=== PATIENT | male | born 1940 ===

== ENCOUNTER 2025-04-20 07:30 | Outpatient (AMB) | payer MEDICARE, SELFPAY ==
--- OUTSIDE RECORDS SUMMARY | 2025-04-20 07:39 | XMS_ITS | Clinical Summary ---
Author Organization [facility] Address [address] [place] [address] Care Team Providers Care Bordereau Clerk Name Role Phone Yaya Rosenthal MD Primary Care Provider [phone] Allergies No known active allergies Medications Medication Sig Dispensed Refills Start Date End Date Status amLODIPine (NORVASC) tablet 10 mg Take 10 mg by mouth. 0 01/09/2019 Active amLODIPine (NORVASC) tablet 10 mg TAKE ONE TABLET BY MOUTH EVERY DAY 0 08/08/2021 Active atorvastatin (LIPITOR) tablet 20 mg Take 20 mg by mouth. 0 12/14/2019 Active hydroCHLOROthiazide (HYDRODIURIL) tablet 25 mg Take 25 mg by mouth daily. 0 12/14/2019 Active metoprolol succinate (TOPROL-XL) 24 hr tablet 100 mg Take 50 mg by mouth. 0 01/09/2019 Active olmesartan (BENICAR) tablet 40 mg Take 40 mg by mouth. 0 12/14/2019 Active Family History Medical History Relation Name Comments Hypertension Father Hypertension Mother Relation Name Status Comments Father Mother Social History Tobacco Use Types Packs/Day Years Used Date Smoking Tobacco: Never Assessed Sex and Gender Information Value Date Recorded Sex Assigned at Not on file Gender Identity Not on file Sexual Orientation Not on file Job Start Date Occupation Industry Not on file Not on file Not on file Last Filed Vital Signs Vital Sign Reading Time Taken Comments Blood Pressure - - Pulse - - Temperature - - Respiratory Rate - - Oxygen Saturation - - Inhaled Oxygen Concentration - - Weight 79.4 kg (175 lb) 08/23/2021 8:26 AM EST Height 175.3 cm (5' 9 ) 08/23/2021 8:26 AM EST Body Mass Index 25.84 08/23/2021 8:26 AM EST Plan of Treatment Health Maintenance Due Date Last Done Comments COVID-19 Vaccine (#1) 01/01/1941 Depression Screening 1953 Preventative Health Evaluation 1959 DTap / Tdap / Td (1 - Tdap) 1960 Shingrix-Zoster Vaccine (1 of 2) 1991 Fall Risk Assessment 2006 Pneumococcal Vaccine (1 of 1 - PCV) 2006 RSV Adult > 60+ Yrs or Pregn ant (1 - 1-dose 75+ series) 2016 Influenza Vaccine (#1) 2025 Hepatitis B Vaccines Aged Out No long er eligible based on patient's age to complete this topic RSV Ped < 20 months Aged Out No longe r eligible based on patient's age to complete this topic Care Teams [place] Clerk Relationship Specialty Start Date End Date Yaya Rosenthal MD [address] [facility] [address] [place] [id number] PCP - General Geriatric Medicine 08/01/21
--- OUTSIDE RECORDS SUMMARY | 2025-04-20 07:40 | XMS_ITS | Patient Health Record ---
Author Organization [facility] Jessica tonia Treviño Address [address] [facility] [place] [address] Care Team Providers Care Manager Business Systems Name Role Phone Yaya Rosenthal MD Primary Care Provider Unavail able Black, Kalyn Unavailable [phone] Allergies No Known Allergies Reason For Referral No Information Medications Medication SIG (Take, Route, Frequency, Duration) Notes Start Date End Date Status Ciclopirox Olamine 0.77 % 1 application Externally Twice a day; Duration: 30 days Active amLODIPine Besylate 10 MG 1 tablet Orall y Once a day; Duration: 30 day(s) Active Aspirin 81 MG 1 tablet Orally Once a day; Duration: 30 day(s) Active Atorvastatin Calcium 20 MG 1 tablet Oral ly Once a day; Duration: 30 day(s) Active hydroCHLOROthiazide 25 MG 1 tablet in e morning Orally Once a day; Duration: 30 day(s) Active Metoprolol Succinate 50 MG 1 capsule Ora lly Once a day; Duration: 30 day(s) Active Olmesartan Medoxomil 40 MG 1 tablet Oral ly Once a day; Duration: 30 day(s) Active Immunizations Vaccine Route Administration Date Status Comme nts COVID-19 Moderna Vaccine Unknown 09/12/2020 Administere d 08/15/2020 Social History Tobacco Use: Social History Observation Description Date Details (start date - stop date) Never Smoker NA - NA Tobacco Use/Smoking Question Answer Notes Are you a: nonsmoker Additional Findings: Tobacco Non-User Current no n-smoker Alcohol Screen Question Answer Notes Did you have a drink containing alcohol in the p ast year? No Points 0 Interpretation Negative Tobacco use other than smoking: Question Answer Notes Are you an other tobacco user? No Problems Problem Type SNOMED Code ICD Code Onset Dates Problem Status W/U Status Risk Notes Problem Acquired hammer toe of right foot (9410415961694 105) Hammer toe of right foot (M20.41) Active confirmed Problem Acquired hammer toe of left foot (6863444616926 103) Hammer toe of left foot (M20.42) Active confirmed Plan Of Treatment Pending Test Test Name Order Date [id number] NAIL, 6 OR MORE 08/19/2020 [id number] NAIL, 6 OR MORE 04/07/2021 [id number] NAIL, 6 OR MORE 08/10/2022 [id number] NAIL, 6 OR MORE 11/23/2022 [id number] NAIL, 6 OR MORE 12/01/2021 [id number] NAIL, 6 OR MORE 08/04/2021 [id number] NAIL, 6 OR MORE 12/14/2020 [id number] NAIL, 6 OR MORE 04/06/2022 Insurance Providers Payer Name Payer Address Payer Phone Subscriber Number Group Number Insured Name Patient Relationship to Insured Coverage Start Date Coverage End Date [employer] Medicare [id number] [address] [address] [place] [address] [id number] Self - patient is the insured Medical (General) History Medical History History ICD Code osteoarthritis Heart disease High blood pressure Surgical History Surgery Date(Month/Year) [facility] 09/13/2001
--- NOTE | 2025-04-20 07:48 | A.OFFVIS_ITS ---
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 Patient reports that his right knee has been painful for about 3 weeks now. He did not have a direct injury but explains that he was doing yard work on uneven ground and was getting on and off the mower when he developed pain in the knee. He feels that he may have twisted the knee. His Pain is consistent and worsened with activities, he also explains some weakness that is particularly felt while descending stairs. No previous therapies tried. He is not taking anything for his pain at this time. Allergies No Known Allergies Allergy (Verified 04/20/25 07:57) Medication List - Last Reviewed 04/20/25 by Olga Akhtar, EMMANUEL amlodipine 10 mg PO DAILY atorvastatin 40 mg PO BEDTIME clopidogrel 75 mg PO DAILY hydrochlorothiazide 25 mg PO DAILY mecobalamin (vitamin B12) 1,000 mcg PO .Three Times a Week metoprolol succinate ER 50 mg PO DAILY olmesartan 40 mg PO DAILY Physical Exam Const Other: Well-nourished well-developed very friendly male awake alert and oriented x3 in no acute distress Extrem Other: Right knee examination shows a large effusion, palpable crepitus with range of motion, pain with range of motion Office Procedures AMB Joint Injection/Aspiration Joint Injection/Aspiration Primary Site: right knee Prep: site was prepped using aseptic technique Injected: 40 mg of, DepoMedrol and 1% plain lidocaine Procedure: The patient tolerated the procedure well Coding 68568 - Large joint Procedure code (CPT) selection complete Results Reviewed Results Reviewed: X-rays of the patient's right knee show moderate diffuse joint space narrowing, no acute bony abnormalities Assessment & Plan Assessment & Plan (1) Arthritis of right knee: Code(s): M17.11 - Unilateral primary osteoarthritis, right knee Category: Medical Plan Mr. St presents with right knee pain due to osteoarthritis. The risks and benefits of a right knee cortisone injection were discussed at length with the patient. The patient wished to proceed. He tolerated the injection well. He will continue with his home exercise program. He will contact me prior to his follow-up appointment in 3 months should any questions or concerns arise. I spent 20 minutes in reviewing the patient's records and imaging studies, seeing the patient and documenting in the medical record. Orders: Orders AMB Joint Injection/Aspiration Today M17.11 - Unilateral primary osteoarthritis, right knee XR knee RT 3V Today M25.561 - Pain in right knee Coding Level of Care Code New Pt Level 3 (27446) Complex EM visit Add On G2211 Diagnoses Arthritis of right knee M17.11 CPT Codes Coding - 78630 Large joint: 07115 - Large joint ([id number])
== END 2025-04-20 08:13 | disposition home or self-care (01) ==
LOC: HO.HOS 07:31
PROVIDERS: Visit Provider Orthopaedic Surgery
DX: M17.11 Unilateral primary osteoarthritis, right knee (principal)
CPT/HCPCS: 20610; 99203

== ENCOUNTER → 2025-04-20 07:42 | Outpatient (BNV) | payer MEDICARE, SELFPAY | PROVIDERS: Visit Provider Radiology Diagnostic Radiology | DX: M17.11 Unilateral primary osteoarthritis, right knee (principal); M25.461 Effusion, right knee | CPT/HCPCS: 73562 ==

== ENCOUNTER 2025-04-20 11:45 | Outpatient (REF) | payer MEDICARE, SELFPAY ==
--- NOTE | ~2025-04-20 | XR_ITS ---
EXAMINATION: XR KNEE 3 VIEWS RIGHT HISTORY: M25.561 - Pain in right knee COMPARISON: There are no prior studies available for comparison. FINDINGS: Three views of the right knee are submitted. Osseous mineralization is normal. There is no fracture or dislocation. There is mild to moderate osteoarthritis of the patellofemoral compartment. There is a small joint effusion. There are vascular calcifications. XR/XR knee RT 3V IMPRESSION: Small joint effusion. Mild to moderate osteoarthritis of the patellofemoral compartment. Electronically signed by: Jose Alfredo Aguilar MD 04/20/2025 08:04 AM EDT
== END 2025-04-20 11:46 | disposition home or self-care (01) ==
LOC: HO.HOSX 11:45
PROVIDERS: Visit Provider Orthopaedic Surgery
DX: M17.11 Unilateral primary osteoarthritis, right knee (principal); M25.561 Pain in right knee
CPT/HCPCS: 20610; 73562; 99202; J1010; J2003